=== PATIENT | male | born 1985 | race Caucasian/White ===

== ENCOUNTER → 2021-11-17 | Outpatient (CLI) | payer BC ==
[~2021-11-17] MED LIST: CARAFATE 1GM1 G PO; PROTONIX 40MG T40 MG PO
== END ==
LOC: COL.RAD 09:36
DX: R10.9 Unspecified abdominal pain (principal)
CPT/HCPCS: A9537

== ENCOUNTER 2021-12-01 08:50 | Day surgery (SDC) | payer BC ==
[~2021-12-01] VITALS: Ht 195.6 cm; Wt 110.5 kg
[2021-12-01] MEDS ORDERED: CARAFATE 1GM1 G PO (09:15)
[2021-12-01] MEDS ORDERED: PROTONIX 40MG T40 MG PO (09:15)
[2021-12-01 09:36] VITALS: BP 113/80; PULSE 71; TEMP 97.6
[2021-12-01 10:30] VITALS: BP 130/80; PULSE 87; TEMP 97.7
[2021-12-01 10:45] VITALS: BP 136/76; PULSE 79
[2021-12-01 11:00] VITALS: BP 136/76; PULSE 77
--- NOTE | 2021-12-01 11:16 | NUR ---
1030: Patient arrived back into [facility] from endo procedure. Patient is alert and awake. Vital signs stable on room air. Report received from ARSENIO Wynn. Patient requesting muffins and orange juice. Girlfriend at bedside. Call light left within reach. Dr. Reno previously in room and spoke with Chantell. 1045: Patient vitally stable. Tolerating food and drink well. Denies pain and nausea. 1100: Patient vitally stable. Meets discharge criteria. Went through discharge instructions with patient and significant other. IV removed without complications. Patient got dressed independently. Escorted to patient entrance via wheelchair. Patient left in the care of his girlfriend, Chantell.
== END 2021-12-01 11:05 | disposition home or self-care (01) ==
LOC: SDCO 08:50
DX: K29.30 Chronic superficial gastritis without bleeding (principal); K21.9 Gastro-esophageal reflux disease without esophagitis; F17.220 Nicotine dependence, chewing tobacco, uncomplicated; Z86.16 Personal history of COVID-19; Z28.310 Unvaccinated for COVID-19; Z28.9 Immunization not carried out for unspecified reason; Z79.1 Long term (current) use of non-steroidal anti-inflammatories (NSAID)
CPT/HCPCS: J2704; J7120